=== PATIENT | female | born 1970 | race Caucasian/White ===

== ENCOUNTER 2016-10-03 12:04 | Emergency (ER) | payer OTHER ==
[~2016-10-03] VITALS: Ht 160 cm; Wt 74.4 kg
[~2016-10-03 12:04] MED LIST: GLUCOPHAGE XR500 MG PO; VENTOLIN H0.09 MG/Ac IH
[2016-10-03 12:23] VITALS: BP 151/86
--- NOTE | 2016-10-03 12:26 | NUR ---
PT. TAKES A COUPLE MEDICATIONS BUT DOESNT REMEMBER THE NAMES
--- NOTE | 2016-10-03 12:36 | NUR ---
PATIENT PRESENTS TO ED DUE TO C/O PAIN TO THIRD DIGIT ON RIGHT HAND, NO INJURY, PAIN STARTED 3 DAYS AGO . PT STATES MIGHT BE RELATED WITH DIABETES, DENIES N/V/D; SKIN IS PINK/WARM/DRY; AAOX4 WITH EVEN AND STEADY GAIT; LUNGS CLEAR BL; HR EVEN AND REGULAR; PT DENIES ANY FEVER, CP, SOB, OR COUGH AT THIS TIME; PATIENT STATES PAIN OF 7/10 RIGHT PAIN AT THIS TIME; PATIENT POSITIONED FOR COMFORT; HOB ELEVATED; BEDRAILS UP X2; BED DOWN. ER MD MADE AWARE OF PT STATUS.
--- NOTE | 2016-10-03 12:48 | NUR ---
DR. HOPE AT BEDSIDE
[2016-10-03] MEDS ORDERED: KETOROLAC 60 MG/2 ML VIAL IM ONE (12:55)
--- NOTE | 2016-10-03 13:06 | NUR ---
PT WENT FOR XRAY VIA WHEELCHAIR, PT AAO, DAUGHTER AT BEDSIDE.
--- NOTE | 2016-10-03 13:14 | NUR ---
PT BACK FROM XRAY PT [facility].
[2016-10-03 14:04] VITALS: BP 133/70
--- NOTE | 2016-10-03 14:05 | NUR ---
Patient discharged with v/s stable. Written and verbal after care instructions given and explained. Patient alert, oriented and verbalized understanding of instructions. Ambulatory with steady gait. All questions addressed prior to discharge. ID band removed. Patient advised to follow up with PMD. Rx of NORCO AND MOTRIN given. Patient educated on indication of medication including possible reaction and side effects. Opportunity to ask questions provided and answered.ENCOURAGED FLUID INTAKE AND PT AGREED WITH IT.
[2016-10-22] MEDS ORDERED: CLOPIDOGREL75 MG PO (01:30)
[2016-10-22] MEDS ORDERED: LOPRESSOR25 MG PO (01:31)
[2016-10-22] MEDS ORDERED: SENNA LAXATIVE1 EACH PO (01:34)
[2016-10-22] MEDS ORDERED: SENNA8.6 M1 PO (01:34)
[2016-10-22] MEDS ORDERED: PROTONIX40 MG PO (01:34)
[2016-10-22] MEDS ORDERED: SENNA8.8 MG/51 PO (01:34)
[2016-10-22] MEDS ORDERED: BENTYL10 M1 PO (01:37)
[2016-10-22] MEDS ORDERED: COZAAR25 M1 PO (01:37)
[2016-10-22] MEDS ORDERED: FERROUS SULFAT325 MG PO (01:37)
== END 2016-10-03 14:05 | disposition home or self-care (01) ==
LOC: MED 12:13
DX: S63.612A Unspecified sprain of right middle finger, initial encounter (principal); E11.9 Type 2 diabetes mellitus without complications; I10 Essential (primary) hypertension; J45.909 Unspecified asthma, uncomplicated; Z95.5 Presence of coronary angioplasty implant and graft; X58.XXXA Exposure to other specified factors, initial encounter; Y93.89 Activity, other specified; Y92.89 Other specified places as the place of occurrence of the external cause; Y99.8 Other external cause status
CPT/HCPCS: 73140; 96372; 99284; J1885

== ENCOUNTER 2016-10-21 21:34 | Inpatient (IN) | payer OTHER ==
[~2016-10-21] VITALS: Ht 160 cm; Wt 72.6 kg
[2016-10-21 22:03] VITALS: BP 140/87
--- NOTE | 2016-10-21 23:26 | NUR ---
Patient to bed 03.
--- NOTE | 2016-10-21 23:27 | NUR ---
PT C/O ABD PAIN ON HER RT SIDE, 8/10, AND HEAD ACHE. NO PAINFUL URINATION. NO BLOOD WITH BM OR URINATION.
--- NOTE | 2016-10-21 23:50 | NUR ---
EPatient being evaluated by physician DR SUERO at bedside.
[2016-10-22] MEDS ORDERED: ONDANSETRON 4 MG/2 ML VIAL IVP ONE (00:05)
[2016-10-22] MEDS ORDERED: KETOROLAC 30 MG/ML VIAL IVP ONE (00:05)
[2016-10-22] MEDS ORDERED: PANTOPRAZOLE 40 MG INJ VIAL IVP ONE (00:05)
[2016-10-22] MEDS ORDERED: NACL 0.9% 500 ML IV ONE (00:05)
[2016-10-22 00:22] LABS: BASOPHILS # (AUTO) 0.1 K/uL (0.00-0.22); BASOPHILS % (AUTO) 1.3 % (0.0-2.0); EOSINOPHILS # (AUTO) 0.2 K/uL (0-0.4); HEMATOCRIT 36.4 % (36-48); HEMOGLOBIN 12.1 g/dL (12.0-16.0); LYMPHOCYTES # (AUTO) 3.5 K/uL (2.5-16.5); LYMPHOCYTES % (AUTO) 43.8 % (20.5-51.1); MEAN CORPUSCULAR HEMOGLOBIN 28 pg (27-31); MEAN CORPUSCULAR HGB CONC 33 g/dL (33-37); MEAN CORPUSCULAR VOLUME 84 fL (80-94); MONOCYTES # (AUTO) 0.4 K/uL (0.8-1.0); MONOCYTES % (AUTO) 4.6 % (1.7-9.3); NEUTROPHILS # (AUTO) 3.7 K/uL (1.8-7.7); NEUTROPHILS % (AUTO) 48.3 % (42.2-75.2); PLATELET COUNT (AUTO) 349 K/uL (140-450); RED BLOOD CELL COUNT(AUTO) 4.32 MIL/uL (4.20-5.40); WHITE BLOOD COUNT (AUTO) 7.9 K/uL (4.8-10.8)
[2016-10-22 00:39] LABS: ALBUMIN 3.6 g/dL (3.4-5.0); ANION GAP 11.6 (8-16); CALCIUM 8.4 mg/dL (8.5-10.1); CREATININE 0.6 mg/dL (0.6-1.3); POTASSIUM 4.6 mmol/L (3.5-5.1); TOTAL BILIRUBIN 0.2 mg/dL (0.0-1.0); TOTAL PROTEIN, SERUM 7.6 g/dL (6.4-8.2)
[2016-10-22] MEDS ORDERED: INSULIN HUMAN REGULAR 100 UNITS/ML 10 ML VIAL IVP ONE (00:50)
[2016-10-22] MEDS ORDERED: NACL 0.9% 1,000 ML IV SCH (01:18)
[2016-10-22] MEDS ORDERED: ACETAMINOPHEN 325 MG TAB PO PRN (01:20)
[2016-10-22] MEDS ORDERED: DEXT 5% / NACL 0.9% 500 ML IV ONE (01:25)
[2016-10-22] MEDS ORDERED: CLOP75TA55 PO (01:30)
--- NOTE | 2016-10-22 01:30 | NUR ---
PT LEFT FOR RADIOLOGY VIA WC, ACCOMPANIED BY COMMERCIAL TIRE SERVICE TECHNICIAN
[2016-10-22] MEDS ORDERED: METO25TA PO (01:31)
[2016-10-22] MEDS ORDERED: SENN1TAB PO (01:34)
[2016-10-22] MEDS ORDERED: SENN8.8S13 PO (01:34)
[2016-10-22] MEDS ORDERED: SENN-72 PO (01:34)
[2016-10-22] MEDS ORDERED: PANT40EC PO (01:34)
[2016-10-22] MEDS ORDERED: FERR325E14 PO (01:37)
[2016-10-22] MEDS ORDERED: BEN10 PO (01:37)
[2016-10-22] MEDS ORDERED: LOSA25TA1 PO (01:37)
--- NOTE | 2016-10-22 01:37 | NUR ---
PT RETURN FROM CT
--- NOTE | 2016-10-22 01:38 | NUR ---
Pt report given to WALDO ENGLAND . Transfer of care at this time.
--- NOTE | 2016-10-22 01:38 | NUR ---
Patient will be admitted to care of DR SWEENEY. Admited to TELE 111A. Will go to rooM 111A . Belongings list completed. Report to WALDO ENGLAND.
[2016-10-22 02:00] VITALS: BP 149/72
--- NOTE | 2016-10-22 02:00 | NUR ---
Admitted from ER TO MED SURGICAL UNIT, with chief complaint of ABDOMINAL PAIN , 46 y/o ,Female, Cooperative, AWAKE, A/OX4. RESPIRATION EVEN AND UNLABORED. IV OF NS INFUSING AT TKO, LEFT AC G 22, PATENT AND INTACT. AMBULATORY TO BR. HEAD TO TOE ASSESSMENT DONE WITH CHARGE NURSE SUMA, SKIN INTACT. PLAN OF CARE FOR THE SHIFT DISCUSSED. VERBALIZED UNDERSTANDING. DENIES ABDOMINAL PAIN, 0/10 AT THIS TIME. NPO. DAUGHTER AT THE BEDSIDE.oriented to call light, bed, phone,television, bathroom, smoking policy,visiting hours, procedures, ID bracelet on. Belongings list checked.
--- NOTE | 2016-10-22 02:15 | NUR ---
Patient's Plan of Care was discussed and reviewed with NEWSPAPER DELIVERER: GRACIA ZULETA
--- NOTE | 2016-10-22 07:15 | NUR ---
ABLE TO SLEEP WELL. CONDITION REMAIN STABLE. ENDORSED TO MICHELLE RN FOR CONTINUITY OF CARE.
[2016-10-22] MEDS: BLOOD GLUCOSE MONITORING 1 DEV DEV FS SCH ×4 (07:20→20:53)
[2016-10-22] MEDS: INSULIN LISPRO SLIDING SCALE 100 UNITS/ML VIAL SUBQ PRN ×3 (07:21→21:06)
--- NOTE | 2016-10-22 07:30 | NUR ---
RECEIVED REPORT FROM TURNSTILE COLLECTOR COMMUNITY NUTRITION EDUCATOR. NO S/S OF ACUTE CARDIAC/RESPIRATORY DISTRESS OR DISCOMFORT. SAFETY MEASURES IN PLACE, CALL LIGHT WITHIN REACH. WILL CONTINUE PLAN OF CARE AND CONTINUE TO MONITOR.
--- NOTE | 2016-10-22 07:52 | NUR ---
PATIENT HAS BEEN SCREENED AND CATEGORIZED MODERATE NUTRITION RISK. PATIENT WILL BE SEEN WITHIN 3-5 DAYS OF ADMISSION. 10/24/16-10/26/[address]
[2016-10-22 08:00] VITALS: BP 130/75
[2016-10-22] MEDS: ENOXAPARIN 40 MG/0.4 ML SYR SUBQ SCH (09:02)
--- NOTE | 2016-10-22 10:00 | NUR ---
PT TOLERATED AM MEDICATION WELL. NO S/S OF ACUTE DISTRESS OR DISCOMFORT. DAUGHTER AT BEDSIDE. CALL LIGHT WITHIN REACH, WILL CONTINUE TO MONITOR.
[2016-10-22] MEDS ORDERED: BISACODYL 5 MG TABEC PO SCH (12:05)
--- NOTE | 2016-10-22 12:40 | NUR ---
PT SEEN BY DR FLORES. DAUGHTER AT BEDSIDE. PT TOLERATING FULL LIQUID DIET. NO S/S OF ACUTE DISTRESS OR DISCOMFORT. PT STATES SHE WANTS FLU AND PNA VACCINE. CALL LIGHT WITHIN REACH, WILL CONTINUE TO MONITOR.
--- NOTE | 2016-10-22 13:21 | NUR ---
CM NOTE INITIAL REVIEW SENT TO [facility] FAX# [phone] PH# ROSEM[place] [phone] DECEMBER [phone] AND TO [facility] FAX# [phone] PH# [phone] [place] [id number] TRACKING# [id number]
--- NOTE | 2016-10-22 14:24 | NUR ---
PT SLEEPING. DAUGHTER AT BEDSIDE. NO S/S OF ACUTE DISTRESS OR DISCOMFORT. CALL LIGHT WITHIN REACH, WILL CONTINUE TO MONITOR.
[2016-10-22 16:00] VITALS: BP 143/86
[2016-10-22] MEDS: MORPHINE SULFATE 4 MG/ML SYR IVP PRN (16:52)
--- NOTE | 2016-10-22 17:41 | NUR ---
PT RESTING. NO S/S OF ACUTE DISTRESS OR DISCOMFORT. CALL LIGHT WITHIN REACH, WILL CONTINUE TO MONITOR.
--- NOTE | 2016-10-22 19:31 | NUR ---
ENDORSED REPORT TO ROUNDHOUSE FIRER/FIREMAN RN. NO S/S OF ACUTE DISTRESS OR DISCOMFORT. PT IN STABLE CONDITION.
[2016-10-22] MEDS: ONDANSETRON 4 MG/2 ML VIAL IVP PRN (19:43)
--- NOTE | 2016-10-22 19:43 | NUR ---
PATIENT COMPLAINED OF FEELING NAUSEOUS, ADMINISTERED ZOFRAN PER MD ORDERED.
[2016-10-22] MEDS: METOPROLOL 25 MG TAB PO SCH (20:53)
[2016-10-22] MEDS: INSULIN DETEMIR 100 UNITS/ML 10 ML VIAL SUBQ SCH (20:56)
[2016-10-22 23:55] VITALS: BP 116/67
[2016-10-22] MEDS: MORPHINE SULFATE 2 MG/ML SYR IVP PRN (23:58)
--- NOTE | 2016-10-23 | NUR ---
V/S CHECKED AND STABLE. PT HAS COMPLAINED OF PAIN 5/10 INTENSITY. ADMINISTERED PAIN MEDICATION PER MD ORDERED.
[2016-10-23] MEDS: MORPHINE SULFATE 4 MG/ML SYR IVP PRN ×2 (04:44→08:56)
--- NOTE | 2016-10-23 04:44 | NUR ---
PATIENT COMPLAINED OF BURNING SENSATION WHEN URINATION. ADMINISTERED PAIN MEDICATION PER MD ORDERED.
[2016-10-23] MEDS: BLOOD GLUCOSE MONITORING 1 DEV DEV FS SCH ×4 (06:11→20:35)
[2016-10-23] MEDS: INSULIN LISPRO SLIDING SCALE 100 UNITS/ML VIAL SUBQ PRN ×3 (06:14→20:34)
[2016-10-23] MEDS ORDERED: PANTOPRAZOLE 40 MG TABEC PO SCH (06:30)
[2016-10-23 06:40] LABS: HEMOGLOBIN 12.5 g/dL (12.0-16.0); MEAN CORPUSCULAR HEMOGLOBIN 29 pg (27-31); MEAN CORPUSCULAR HGB CONC 34 g/dL (33-37); MEAN CORPUSCULAR VOLUME 85 fL (80-94); NEUTROPHILS % (AUTO) 71.6 % (42.2-75.2); PLATELET COUNT (AUTO) 360 K/uL (140-450); RED BLOOD CELL COUNT(AUTO) 4.35 MIL/uL (4.20-5.40); RED CELL DISTRIBUTION WIDTH 12.4 % (11.6-13.7); WHITE BLOOD COUNT (AUTO) 11.5 K/uL (4.8-10.8)
[2016-10-23 06:41] LABS: BASOPHILS # (AUTO) 0.1 K/uL (0.00-0.22); BASOPHILS % (AUTO) 0.6 % (0.0-2.0); EOSINOPHILS # (AUTO) 0.2 K/uL (0-0.4); EOSINOPHILS % (AUTO) 1.5 % (0.0-4.0); LYMPHOCYTES # (AUTO) 2.5 K/uL (2.5-16.5); LYMPHOCYTES % (AUTO) 21.8 % (20.5-51.1); MONOCYTES # (AUTO) 0.5 K/uL (0.8-1.0); MONOCYTES % (AUTO) 4.5 % (1.7-9.3); NEUTROPHILS # (AUTO) 8.2 K/uL (1.8-7.7)
[2016-10-23 07:20] LABS: ANION GAP 11.8 (8-16); CALCIUM 8.1 mg/dL (8.5-10.1); CARBON DIOXIDE 29.1 mmol/L (21-32); CREATININE 0.6 mg/dL (0.6-1.3); POTASSIUM 3.9 mmol/L (3.5-5.1); TOTAL BILIRUBIN 0.4 mg/dL (0.0-1.0)
--- NOTE | 2016-10-23 07:20 | NUR ---
ENDORSED TO DAY SHIFT NURSE FOR CONTINUITY OF CARE. PATIENT IS IN STABLE CONDITION.
[2016-10-23 07:21] LABS: ALBUMIN 3.5 g/dL (3.4-5.0); TOTAL PROTEIN, SERUM 7.5 g/dL (6.4-8.2)
--- NOTE | 2016-10-23 07:25 | NUR ---
RECEIVED REPORT FROM TYPEWRITER MECHANIC RN. PT IS SLEEPING. NO S/S OF ACUTE CARDIAC/RESPIRATORY DISTRESS OR DISCOMFORT. SAFETY MEASURES IN PLACE, CALL LIGHT WITHIN REACH. WILL CONTINUE PLAN OF CARE AND CONTINUE TO MONITOR.
[2016-10-23 07:30] VITALS: BP 110/59
[2016-10-23] MEDS: CLOPIDOGREL 75 MG TAB PO SCH (08:53)
[2016-10-23] MEDS: LOSARTAN 25 MG TAB PO SCH (08:54)
[2016-10-23] MEDS: METOPROLOL 25 MG TAB PO SCH ×2 (08:55→20:34)
[2016-10-23] MEDS: ONDANSETRON 4 MG/2 ML VIAL IVP PRN ×2 (08:55→20:42)
[2016-10-23] MEDS ORDERED: DICYCLOMINE 10 MG CAP PO SCH (09:00)
[2016-10-23] MEDS ORDERED: SENNA 8.6 MG TAB PO SCH (09:00)
[2016-10-23] MEDS: ENOXAPARIN 40 MG/0.4 ML SYR SUBQ SCH (09:47)
[2016-10-23] MEDS: INSULIN DETEMIR 100 UNITS/ML 10 ML VIAL SUBQ SCH ×2 (09:47→20:33)
--- NOTE | 2016-10-23 10:33 | NUR ---
PT TOLERATED HER AM MEDS WELL. NO S/S OF ACUTE DISTRESS. CALL LIGHT WITHIN REACH, WILL CONTINUE TO MONITOR. SON AT BEDSIDE.
[2016-10-23] MEDS: NACL 0.9% 1,000 ML IV SCH ×3 (11:05→23:33)
[2016-10-23 12:06] LABS: APPEARANCE,URINE HAZY (CLEAR); BILIRUBIN,URINE NEGATIVE (NEGATIVE); BLOOD, URINE 1+ (NEGATIVE); COLOR,URINE YELLOW (YELLOW); LEUKOCYTE ESTERASE ,URINE 1+ (NEGATIVE); NITRITE, URINE POSITIVE (NEGATIVE); PH,URINE 6.5 (5.0-9.0); PROTEIN,URINE 1+ (NEGATIVE); UGLUCOSE 3+ (NEGATIVE); UROBILINOGEN,URINE 0.2 EU/dL (0.2 - 1)
[2016-10-23 12:31] LABS: BACTERIA,URINE 2+ /HPF (None Seen); RBC,URINE 0-5 (RARE) /HPF (0-5); SQUAMOUS EPITHELIAL CELL,UR 5 /LPF (0-3 (FEW)); WBC,URINE TOO MANY TO COUNT /HPF (0-5)
--- NOTE | 2016-10-23 13:00 | NUR ---
PT SEEN BY DR FLORES. PT SIGNED EGD CONSENT. NO S/S OF ACUTE DISTRESS OR DISCOMFORT. CALL LIGHT WITHIN REACH, WILL CONTINUE TO MONITOR. DAUGHTER AT BEDSIDE.
--- NOTE | 2016-10-23 13:23 | NUR ---
CM NOTE CONCURRENT REVIEW SENT TO [facility] FAX# [phone] PH# ROSEMARY [phone] DECEMBER [phone] AND TO [facility] FAX# [phone] PH# [phone] [place] [id number] TRACKING# [id number]
--- NOTE | 2016-10-23 15:56 | NUR ---
PT IS SLEEPING. NO S/S OF ACUTE DISTRESS OR DISCOMFORT. CALL LIGHT WITHIN REACH, WILL CONTINUE TO MONITOR. DAUGHTER AT BEDSIDE.
[2016-10-23 16:00] VITALS: BP 127/47
[2016-10-23] MEDS ORDERED: METOCLOPRAMIDE 10 MG TAB PO SCH (16:30)
--- NOTE | 2016-10-23 17:00 | NUR ---
PT IS RESTING. NO S/S OF ACUTE DISTRESS OR DISCOMFORT. CALL LIGHT WITHIN REACH, WILL CONTINUE TO MONITOR.
[2016-10-23] MEDS: SENNA 8.6 MG TAB PO SCH (17:14)
[2016-10-23] MEDS: METOCLOPRAMIDE 10 MG/2 ML INJ VIAL IVP SCH ×2 (17:15→23:30)
--- NOTE | 2016-10-23 19:10 | NUR ---
ENDORSED REPORT TO CLUTCH OPERATOR SAMANTA HOLT. PT HAS NO S/S OF ACUTE DISTRESS OR DISCOMFORT. PT IN STABLE CONDITION.
--- NOTE | 2016-10-23 19:11 | NUR ---
RECEIVED REPORT FROM DAYSHIFT NURSE. PT IS AAOX4, HAS NO COMPLAIN OF PAIN. ON ROOM AIR, NO S/S OF RESPIRATORY DISTRESS/DISCOMFORT NOTED. IV SITE IS PATENT, INTACT AND INFUSING WELL. PLAN OF CARE DISCUSSED, VERBALIZED UNDERSTANDING. SAFETY MEASURES CHECKED, CALL LIGHT WITHIN REACH. WILL CONTINUE TO MONITOR.
--- NOTE | 2016-10-23 20:39 | NUR ---
DUE MEDS GIVEN. PROVIDED HEALTH TEACHING, BENEFITS AND S/E, VERBALIZED UNDERSTANDING. PT TOLERATED WELL.
[2016-10-24] VITALS: BP 139/80
--- NOTE | 2016-10-24 00:30 | NUR ---
V/S CHECKED AND STABLE, HAS NO COMPLAIN OF PAIN. NO S/S OF RESPIRATORY DISTRESS/DISCOMFORT NOTED.
--- NOTE | 2016-10-24 01:32 | NUR ---
PT SLEEPING AT THIS TIME. SAFETY MEASURES CHECKED, CALL LIGHT WITHIN REACH.
[2016-10-24] MEDS: METOCLOPRAMIDE 10 MG/2 ML INJ VIAL IVP SCH ×2 (05:29→12:00)
--- NOTE | 2016-10-24 05:38 | NUR ---
BLOOD SUGAR CHECKED, BSL= 132, NO INSULIN COVERAGE.
[2016-10-24 05:59] LABS: BASOPHILS # (AUTO) 0.1 K/uL (0.00-0.22); BASOPHILS % (AUTO) 0.8 % (0.0-2.0); EOSINOPHILS # (AUTO) 0.1 K/uL (0-0.4); EOSINOPHILS % (AUTO) 1.3 % (0.0-4.0); HEMATOCRIT 33.9 % (36-48); HEMOGLOBIN 11.1 g/dL (12.0-16.0); LYMPHOCYTES # (AUTO) 3.3 K/uL (2.5-16.5); LYMPHOCYTES % (AUTO) 43.7 % (20.5-51.1); MEAN CORPUSCULAR HEMOGLOBIN 28 pg (27-31); MEAN CORPUSCULAR HGB CONC 33 g/dL (33-37); MEAN CORPUSCULAR VOLUME 85 fL (80-94); MONOCYTES # (AUTO) 0.4 K/uL (0.8-1.0); MONOCYTES % (AUTO) 5.7 % (1.7-9.3); NEUTROPHILS # (AUTO) 3.8 K/uL (1.8-7.7); NEUTROPHILS % (AUTO) 48.5 % (42.2-75.2); PLATELET COUNT (AUTO) 326 K/uL (140-450); RED BLOOD CELL COUNT(AUTO) 3.98 MIL/uL (4.20-5.40); RED CELL DISTRIBUTION WIDTH 12.4 % (11.6-13.7); WHITE BLOOD COUNT (AUTO) 7.7 K/uL (4.8-10.8)
[2016-10-24 06:29] LABS: ALBUMIN 2.9 g/dL (3.4-5.0); CALCIUM 7.6 mg/dL (8.5-10.1); CARBON DIOXIDE 27.4 mmol/L (21-32); CREATININE 0.5 mg/dL (0.6-1.3); POTASSIUM 3.4 mmol/L (3.5-5.1); TOTAL BILIRUBIN 0.3 mg/dL (0.0-1.0); TOTAL PROTEIN, SERUM 6.3 g/dL (6.4-8.2)
[2016-10-24] MEDS: BLOOD GLUCOSE MONITORING 1 DEV DEV FS SCH ×3 (06:44→16:45)
--- NOTE | 2016-10-24 07:27 | NUR ---
ENDORSED REPORT TO DAY SHIFT NURSE FOR CONTINUITY OF CARE. PT IS IN STABLE CONDITION.
--- NOTE | 2016-10-24 07:28 | NUR ---
RECEIVED PT ASLEEP BUT EASILY AROUSABLE, AAOX4, NO S/S OF RESPIRATORY DISTRESS OR DISCOMFORT, WITH IV ACCESS ON LEFT AC 22G INFUSING FLUIDS WELL. SKIN IS INTACT. PT REMINDED ABOUT EGD PROCEDURE TODAY AND DISCUSSED PLAN OF CARE, PT VERBALIZED UNDERSTANDING. SAFETY PRECAUTIONS ENFORCED. CALL LIGHT WITHIN REACH, WILL CONTINUE TO MONITOR.
--- NOTE | 2016-10-24 07:46 | NUR ---
NOTIFIED DR FLORES OF POTASSIUM LEVEL 3.4, NO NEW ORDERS.
[2016-10-24 08:00] VITALS: BP 134/62
[2016-10-24] MEDS: INSULIN DETEMIR 100 UNITS/ML 10 ML VIAL SUBQ SCH (08:46)
[2016-10-24] MEDS: MORPHINE SULFATE 2 MG/ML SYR IVP PRN (08:56)
--- NOTE | 2016-10-24 08:59 | NUR ---
DUE MEDS GIVEN VIA IV, PT TOLERATED WELL. PO MEDS HELD DUE TO EGD. PT COMPLAINED OF PAIN, MORPHINE 2MG GIVEN, WILL REASSESS.
[2016-10-24] MEDS: ENOXAPARIN 40 MG/0.4 ML SYR SUBQ SCH (09:00)
[2016-10-24] MEDS: CLOPIDOGREL 75 MG TAB PO SCH (09:00)
[2016-10-24] MEDS: SENNA 8.6 MG TAB PO SCH ×2 (09:00→13:22)
[2016-10-24] MEDS: METOPROLOL 25 MG TAB PO SCH (09:00)
[2016-10-24] MEDS ORDERED: PANTOPRAZOLE 40 MG INJ VIAL IVP SCH (09:00)
[2016-10-24] MEDS: LOSARTAN 25 MG TAB PO SCH (09:00)
--- NOTE | 2016-10-24 10:28 | NUR ---
PT AWAKE LYING ON BED TALKING ON HER PHONE. ALL NEEDS MET AT THIS TIME. CALL LIGHT WITHIN REACH, WILL CONTINUE TO MONITOR.
[2016-10-24] MEDS ORDERED: fentaNYL 0.05 MG/ML VIAL ONE (10:29)
[2016-10-24] MEDS ORDERED: MIDAZOLAM 2 MG/2 ML VIAL ONE (10:29)
[2016-10-24] MEDS ORDERED: diphenhydrAMINE 50 MG/ML VIAL ONE (10:30)
--- NOTE | 2016-10-24 11:22 | NUR ---
CM NOTE CONCURRENT REVIEW SENT TO [facility] FAX# [phone] PH# ROSEMARY [phone] DECEMBER [phone] AND TO [facility] FAX# [phone] PH# [phone] [place] [id number] TRACKING# [id number]
--- NOTE | 2016-10-24 11:51 | NUR ---
PT LEFT UNIT TO OR ON A BED ACCOMPANIED BY OR NURSES IN STABLE CONDITION
[2016-10-24] MEDS ORDERED: MAGNESIUM CITRATE 300 ML BTL PO SCH (13:00)
[2016-10-24 13:10] VITALS: BP 121/70
--- NOTE | 2016-10-24 13:10 | NUR ---
PT BACK TO UNIT FROM OR LYING ON A BED IN STABLE CONDITION. VS STABLE.
[2016-10-24] MEDS: NACL 0.9% 1,000 ML IV SCH (13:22)
--- NOTE | 2016-10-24 13:45 | NUR ---
DR FLORES AT BEDSIDE
[2016-10-24] MEDS ORDERED: INFLUENZA VIRUS VACCINE QUAD 0.5 ML SYR IMVAC SCH (16:30)
[2016-10-24] MEDS: INSULIN LISPRO SLIDING SCALE 100 UNITS/ML VIAL SUBQ PRN (16:38)
--- NOTE | 2016-10-24 16:49 | NUR ---
DISCHARGE PRESCRIPTIONS AND INSTRUCTIONS GIVEN, PT VERBALIZED UNDERSTANDING. FLU VACCINE GIVEN UPON DISCHARGE. ID WRISTBAND AND IV ACCESS REMOVED, CATHETER TIP INTACT. PT LEFT UNIT AMBULATING WITH SPOUSE AND DAUGHTER IN STABLE CONDITION.
== END 2016-10-24 16:50 | disposition home or self-care (01) | DRG 420 ==
LOC: MED 21:34 → MTU 10-22 01:22
PROVIDERS: ADMIT Internal Medicine Pulmonary Disease; ATTEND Internal Medicine Pulmonary Disease
PROC: 0DB68ZX Excision of Stomach, Via Natural or Artificial Opening Endoscopic, Diagnostic (ICD-10-PCS; principal; 2016-10-24 11:30)
DX: E11.65 Type 2 diabetes mellitus with hyperglycemia (principal); K85.90 Acute pancreatitis without necrosis or infection, unspecified; K31.84 Gastroparesis; E11.43 Type 2 diabetes mellitus with diabetic autonomic (poly)neuropathy; N39.0 Urinary tract infection, site not specified; N13.2 Hydronephrosis with renal and ureteral calculous obstruction; K92.2 Gastrointestinal hemorrhage, unspecified; I10 Essential (primary) hypertension; R30.0 Dysuria; J45.909 Unspecified asthma, uncomplicated; I25.10 Atherosclerotic heart disease of native coronary artery without angina pectoris; E66.9 Obesity, unspecified; K59.09 Other constipation; Z95.5 Presence of coronary angioplasty implant and graft; Z91.09 Other allergy status, other than to drugs and biological substances; Z68.28 Body mass index [BMI] 28.0-28.9, adult
CPT/HCPCS: 36415; 76705; 80053; 81001; 82948; 83690; 84478; 85025; 86677; 87081; 87086; 87186; 90658; 96361; 96374; 96375; 99285; C9113; J0696; J1200; J1650; J1815; J1885; J2250; J2270; J2405; J2765; J3010; J7030; J7060; Q0092